=== PATIENT | male | born 1950 | race Caucasian/White ===

== ENCOUNTER 2019-10-31 09:41 | Day surgery (SDC) | payer MEDICARE, SELFPAY ==
--- NOTE | 2019-10-31 | PATH_ITS ---
[facility] Accession Number: [id number] . 01 Material submitted: . PART A: colon - TRANSVERSE COLON POLYP PART B: colon - FLAT LESION PART C: colon - POLYP AT 20CM . 01 Clinical history: . SDC . 02 Diagnosis: A. Transverse Colon, Polyp, Biopsy: Colonic mucosa with no significant diagnostic abnormality, consistent with polypoid redundancy. Negative for dysplasia and malignancy. Additional levels were examined. . B. Flat Lesion, Biopsy: Tubular adenoma. . C. Colon, Polyp At 20 CM, Biopsy: Tubulovillous adenoma. No evidence of malignancy or high-grade dysplasia. . . I 11/04/2019 1245 Local . 02 Electronically signed: . Nisha Lyons MD, Pathologist NPI- [id number] . 01 Gross description: . Part A: TRANSVERSE COLON POLYP: Received in formalin are 3 fragment(s) of burgess, soft tissue measuring 0.1 x 0.1 x 0.1 cm to 0.3 x 0.3 x 0.2 cm submitted entirely in 1 cassette(s) Part B: FLAT LESION: Received in formalin are 3 fragment(s) of burgess, soft tissue measuring 0.2 x 0.2 x 0.2 cm to 0.4 x 0.3 x 0.2 cm submitted entirely in 1 cassette(s) Part C: POLYP AT 20CM: Received in formalin is 1 fragment(s) of burgess, soft tissue measuring 0.7 x 0.5 x 0.5 cm submitted entirely in 1 cassette(s) /FRANSICO 11/01/2019 0139 Local . 02 Microscopic: . A. Additional levels were examined. . 02 Pathologist provided ICD-10: D12.6 . 02 CPT . 508762, 729468, 960585 Performed at: 01 [facility] [address] [place] [address], [place], [place] [id number] MD Aron Gonzalez MD Phone: [phone] Performed at: 02 [facility] [address] [address] [place], [place] [id number] MD Nisha Lyons MD Phone: [phone]
[2019-10-31] MEDS: LACTATED RINGERS 1,000 ML 200 ML IV (10:06)
[2019-10-31 10:16] VITALS: BP 134/83; PULSE 58; RESP 16; TEMP 36.2; O2SAT 100; BMI 22.4
--- NOTE | 2019-10-31 11:42 | PM.HP.1 ---
History of Present Illness History of Present Illness Date Patient Seen: 10/31/19 Time Patient Seen: 11:43 Chief complaint: [facility] [place] Narrative: The patient is a gentleman here because of a positive fit test and blood per rectum. His last colonoscopy was at least 11 years ago. He has had polyps removed in the past. Patient History Medical History (Updated 10/31/19 @ 11:45 by Dat Rosas MD) Recurrent major depressive disorder, in partial remission (10/29/15) Rotator cuff impingement syndrome of left shoulder (03/30/15) Supraventricular tachycardia (10/29/15) Vitreous detachment of left eye (10/29/15) Family & Social History Social History: household members spouse Tobacco & Substance use: Smoking Status Never smoker alcohol intake frequency 0-2 drinks per day Substance Use Type marijuana Meds Home Medications and Allergies Home Medications Medication Instructions Recorded Confirmed Type cholecalciferol (vitamin D3) PRN #0 09/15/11 History [Vitamin D3] clobetasol 1 dudley TOPICAL BIDP PRN #60 gm 04/22/16 Rx Allergies Allergy/AdvReac Type Severity Reaction Status Date / Time No Known Drug Allergies Allergy Verified 10/31/19 09:36 Review of Systems Review of Systems Narrative: Patient had pneumonia in August. He had a very high temperature. His COVID-19 test at that time was negative and it is negative now. Exam Vital Signs (past 8 hours): - 10/31/19 10:16 Temperature 97.1 F L Pulse Rate 58 L Respiratory Rate 16 Blood Pressure 134/83 Pulse Oximetry 100 Oxygen Delivery Method Room Air Narrative Exam Narrative: Pleasant cooperative patient no apparent distress. Lungs are clear to auscultation. No rales or rhonchi. Heart regular rate and rhythm no murmur gallop. Abdomen is soft nontender without mass. No obvious hernias. Patient is alert and oriented x3. Assessment & Plan Assessment and plan (1) Supraventricular tachycardia: Problem details: Will monitor. He has supraventricular tachycardia intermittently. It is not usually sustained. Status: None Assessment & Plan narrative: The patient for a screening colonoscopy. I have discussed the procedure with them. Risks of bleeding, perforation which would necessitate major operation, failure to find remove all lesions, the potential tattoo were all discussed. All questions were answered. They wished to proceed.
--- NOTE | 2019-10-31 11:46 | PM.PREOP ---
Pre-operative Note COVID-19 COVID-19 status: Negative Result date/Date tested (Pos, Neg/Pending): 10/28/19 Interval Note History & Physical reviewed/Exam performed by Physician: Yes Changes to H&P: No ASA Class (for procedural sedation): I
[2019-10-31] MEDS: fentaNYL 250 MCG/5 ML INJ IV (11:48)
[2019-10-31] MEDS: MIDAZOLAM 5 MG/5 ML VIAL IV (11:48)
--- NOTE | 2019-10-31 12:17 | PM.OP.ENDO ---
Operative Date/Time/Diagnoses Date of procedure: 10/31/19 Time of procedure: 12:19 Pre-op diagnosis: history of polyps. Last colonoscopy 11 years ago. Post-op diagnosis: same (Two polyps and 1 irregular area of mucosa.) Procedure & Clinicians Study performed: Colonoscopy with cold biopsy and hot snare polypectomy Same procedure as scheduled: Yes Indications: Screening. History of blood per rectum. Positive fit test. Surgeon: Dat Rosas Procedure Notes SCOAP/Timeout: Performed Procedure in detail: The patient was placed in the left lateral decubitus position and underwent IV sedation directed by the surgeon consisting of fentanyl and Versed. Digital exam was remarkable for an enlarged prostate. I did not note any external hemorrhoids and his sphincter tone was decreased. The scope was inserted and advanced through the rectum into the sigmoid, descending, transverse, and ascending colon. A small polyp was I identified in the transverse colon which was biopsied and removed. I also noted a small reddened area at 50 cm from the anal verge that could represent a very small AV malformation. The cecum was reached identified by the ileocecal valve and the appendiceal opening. There was a flat lesion in the distal transverse colon. I was not sure if it was actually a polyp or just a slight variation in the mucosa. I took multiple pieces of the area. If it is positive for an adenoma this scope will need to be repeated in a year or lasts to remove the remainder of this lesion. The scope was gradually brought out. An additional Polyp was found at 20 cm from the anal verge. This polyp was snared as it was larger than the others. Additionally, there was a very small lesion proximal to this which was cauterized.. The scope ultimately was retroflexed in the rectum. The appearance was remarkable for minor scarring on old hemorrhoidal disease. There was no active or at large hemorrhoids however.. The scope was removed and the patient tolerated the procedure well Scope withdrawal time: 9 minutes(14 total) Sedation minutes: 30 Findings: polyp and other findings (Enlarged prostate) Specimen(s): other (Polyps and possible flat lesion in the transverse colon) Complications: none Post-procedure Recommendations: Colonscopy in 5 years (If the flat lesion is adenomatous he should have this test repeated within the next year to remove the remainder of it.) Follow up: as needed Disposition: PACU
[2019-10-31 12:22] VITALS: BP 115/68; PULSE 56; RESP 12; TEMP 36.5; O2SAT 99
[2019-10-31 12:27] VITALS: BP 107/72; PULSE 59; RESP 14; O2SAT 99
[2019-10-31 12:35] VITALS: BP 120/64; PULSE 50; RESP 13; TEMP 36.1; O2SAT 99
[2019-10-31 12:40] VITALS: BP 117/75; PULSE 53; RESP 15; TEMP 36.2; O2SAT 100
== END 2019-10-31 12:55 | disposition home or self-care (01) ==
PROVIDERS: Family Provider Family Medicine; PCP Family Medicine; Referring Provider Family Medicine; Visit Provider Specialist
PROC: 0DJD8ZZ Inspection of Lower Intestinal Tract, Via Natural or Artificial Opening Endoscopic (ICD-10-PCS; CPT 45378; principal; 2019-10-31 10:45)
DX: R19.5 Other fecal abnormalities (principal); Z86.010 Personal history of colon polyps; I47.1 Supraventricular tachycardia; N40.0 Benign prostatic hyperplasia without lower urinary tract symptoms; D12.6 Benign neoplasm of colon, unspecified
CPT/HCPCS: 45385; 45380; 99152; 99153; J2250; J3010

== ENCOUNTER → 2020-06-22 12:01 | Outpatient (CLI) | payer MEDICARE, SELFPAY ==
--- NOTE | 2020-06-22 | DI.US.S_ITS ---
PROCEDURE: US SCROTUM INDICATIONS: RIGHT TESTICLE DISORDER TECHNIQUE: Real-time scanning was performed of the scrotum and testicles, with image documentation. Color and pulse Doppler interrogation was performed of both testicles. COMPARISON: None. FINDINGS: Right: Testicle is normal in size at 4.2 x 3.2 x 2.3 cm, and homogenous in echotexture. Epididymis is mildly thickened and demonstrates several epididymal cysts, including an 11 mm epididymal head cyst. No hydrocele or varicoceles. Overlying scrotal skin is normal in thickness. Left: Testicle is normal in size at 4.4 x 2.9 x 2 cm, and homogeneous in echotexture. Epididymis is mildly thickened, with a 2 mm cyst incidentally noted.. No hydrocele or varicoceles. Overlying scrotal skin is normal in thickness. Doppler: Color and pulse Doppler demonstrate normal and symmetric arterial flow in both testicles. No findings of groin hernia can be seen. IMPRESSION: No intratesticular mass can be seen. Normal appearing, symmetric vascularity can be seen. On the right, numerous epididymal cysts are seen, including an 11 mm epididymal head cyst. Dictated by: Maximino Goyal M.D. on 06/22/2020 at 16:06 Approved by: Maximino Goyal M.D. on 06/22/2020 at 16:07
[2020-06-22 13:28] LABS: Prostate Specific Antigen 2.56 ng/mL (0.10-4.00)
== END ==
PROVIDERS: Specialist; Family Provider Family Medicine; PCP Family Medicine; Referring Provider Family Medicine; Visit Provider Family Medicine
DX: N50.9 Disorder of male genital organs, unspecified (principal); N50.3 Cyst of epididymis; R97.20 Elevated prostate specific antigen [PSA]
CPT/HCPCS: 36415; 76870; 84153

== ENCOUNTER → 2020-08-21 09:41 | Day surgery (SDC) | payer MEDICARE, SELFPAY ==
[2020-08-21 10:22] VITALS: BP 124/74; PULSE 55; RESP 16; TEMP 36.4; BMI 23.1
[2020-08-21] MEDS: LACTATED RINGERS 1,000 ML 200 ML IV (10:47)
--- NOTE | 2020-08-21 11:30 | PM.HP.1 ---
History of Present Illness History of Present Illness Date Patient Seen: 08/21/20 Time Patient Seen: 11:30 [place] [facility] [place]arrative: Patient is gentleman who had a flat unusual area in his proximal transverse colon the proved to be neoplastic. He is brought back to ensure complete removal. He has also been having bleeding and pain with bowel movements. He has asked me to take a look at that and treated if I can do so at this time. This might involve banding I explained to him. Patient History Medical History Recurrent major depressive disorder, in partial remission (10/29/15) Rotator cuff impingement syndrome of left shoulder (03/30/15) Seizure Supraventricular tachycardia (10/29/15) Vitreous detachment of left eye (10/29/15) Family & Social History Social History: household members spouse Tobacco & Substance use: Smoking Status Former smoker alcohol intake frequency 0-2 drinks per day Substance Use Type marijuana Meds Home Medications and Allergies Allergies Allergy/AdvReac Type Severity Reaction Status Date / Time No Known Drug Allergies Allergy Verified 08/21/20 10:15 Review of Systems Review of Systems ROS: Yes All systems reviewed with the patient and are negative except as otherwise documented Exam Vital Signs (past 8 hours): - 08/21/20 10:22 Temperature 97.5 F L Pulse Rate 55 L Respiratory Rate 16 Blood Pressure 124/74 Oxygen Delivery Method Room Air Narrative Exam Narrative: Pleasant cooperative patient no apparent distress. Lungs are clear to auscultation. No rales or rhonchi. Heart regular rate and rhythm no murmur gallop. Abdomen is soft nontender without mass. No obvious hernias. Patient is alert and oriented x3. Assessment & Plan Assessment & Plan narrative: The patient for a screening colonoscopy. I have discussed the procedure with them. Risks of bleeding, perforation which would necessitate major operation, failure to find remove all lesions, the potential tattoo were all discussed. All questions were answered. They wished to proceed.
--- NOTE | 2020-08-21 11:37 | PM.PREOP ---
Pre-operative Note COVID-19 COVID-19 status: Negative Result date/Date tested (Pos, Neg/Pending): 08/19/20 Interval Note History & Physical reviewed/Exam performed by Physician: Yes Changes to H&P: No ASA Class (for procedural sedation): I
[2020-08-21] MEDS: MIDAZOLAM 5 MG/5 ML VIAL IV (11:39)
[2020-08-21] MEDS: fentaNYL 250 MCG/5 ML INJ IV (11:40)
--- NOTE | 2020-08-21 11:46 | PM.OP.ENDO ---
Operative Date/Time/Diagnoses Date of procedure: 08/21/20 Time of procedure: 11:46 Pre-op diagnosis: Flat lesion in the transverse colon. Small amount of rectal bleeding with bowel movements. Post-op diagnosis: same (Procedure abandoned due to form stool obscuring the lumen.) Procedure & Clinicians Study performed: Attempted colonoscopy. Abandoned at 15 cm from the anal verge Same procedure as scheduled: No Indications: Residual polyp in the transverse colon. Surgeon: Dat Rosas Procedure Notes SCOAP/Timeout: Performed Procedure in detail: Patient is placed left lateral decubitus position underwent IV sedation direct about the surgeon consisting fentanyl Versed. Digital exam was unremarkable. His prostate is not enlarged. I inserted the scope with very quickly encountered form stool. I tried twice to pass around this but was unable to do so. The it completely obstructed the lumen I could not get above it. I retroflexed the scope in the rectum could not see any significant hemorrhoidal disease. Unfortunately as I slowly came to the anus there was stool staining the area and it may get a good look. The procedure will have to be rescheduled and re-evaluated the rectal bleeding at that time. He should have a 2 day prep. Specimen(s): none sent Complications: none Post-procedure Plan for aftercare: Reschedule in near future Disposition: PACU
[2020-08-21 11:49] VITALS: BP 111/65; PULSE 55; RESP 8; TEMP 36.4; O2SAT 96
[2020-08-21 11:55] VITALS: BP 106/62; PULSE 55; RESP 9; O2SAT 96
[2020-08-21 12:00] VITALS: BP 105/65; PULSE 62; RESP 13; TEMP 36.2; O2SAT 97
[2020-08-21 12:06] VITALS: BP 112/74; PULSE 63; RESP 12; TEMP 36.6; O2SAT 97
[2020-08-21 12:29] VITALS: BP 110/70; PULSE 60; RESP 16; TEMP 36.4; O2SAT 98
== END | disposition home or self-care (01) ==
PROVIDERS: Family Provider Family Medicine; PCP Family Medicine; Referring Provider Specialist; Visit Provider Specialist
PROC: 0DJD8ZZ Inspection of Lower Intestinal Tract, Via Natural or Artificial Opening Endoscopic (ICD-10-PCS; CPT 45378; principal; 2020-08-21 10:45)
DX: K62.5 Hemorrhage of anus and rectum (principal); K63.5 Polyp of colon; Z53.09 Procedure and treatment not carried out because of other contraindication
CPT/HCPCS: 45378; J2250; J3010

== ENCOUNTER 2020-10-16 08:45 | Day surgery (SDC) | payer MEDICARE, SELFPAY ==
--- NOTE | 2020-10-16 | PATH_ITS ---
[facility] Accession Number: [id number] . 01 Material submitted: . PART A: colon - 30CM PART B: colon - 110CM PART C: colon - 100CM PART D: colon - 90CM PART E: colon - 10CM . 02 Diagnosis: A. Colon, 30 cm, Biopsy: Colonic mucosa with no diagnostic abnormality. Negative for active, chronic, and microscopic colitis. Negative for dysplasia and malignancy. . B. Colon, 110 cm, Biopsy: Tubular adenoma. . C. Colon, 100 cm, Biopsy: Tubular adenoma. . D. Colon, 90 cm, Biopsy: Tubular adenoma. . E. Colon, 10 cm, Biopsy: Tubulovillous adenoma. No evidence of malignancy or high-grade dysplasia. [facility] 10/20/2020 1349 Local . 02 Electronically signed: . Nisha Lyons MD, Pathologist NPI- [id number] . 01 Gross description: . Part A: 30CM: Received in formalin is 1 fragment(s) of burgess, soft tissue measuring 0.4 x 0.3 x 0.2 cm submitted entirely in 1 cassette(s) Part B: 110CM: Received in formalin are multiple fragment(s) of burgess, soft tissue measuring 1.5 x 0.8 x 0.1 cm in aggregate submitted entirely in 1 cassette(s) Part C: 100CM: Received in formalin are multiple fragment(s) of burgess, soft tissue measuring 2.3 x 1.0 x 0.2 cm in aggregate submitted entirely in 1 cassette(s) Part D: 90CM: Received in formalin is 1 fragment(s) of burgess, soft tissue measuring 0.5 x 0.4 x 0.2 cm submitted entirely in 1 cassette(s) Part E: 10CM: Received in formalin are 2 fragment(s) of burgess, soft tissue measuring 0.3 x 0.3 x 0.2 cm to 0.3 x 0.3 x 0.2 cm submitted entirely in 1 cassette(s) /JAMIE 10/17/2020 0517 Local . 02 Pathologist provided ICD-10: D12.6 . 02 CPT . 332677, 482062, 056765, 285420, 734212 Performed at: 01 [facility] [address] [place] [address], [place], [place] [id number] MD Aron Gonzalez MD Phone: [phone] Performed at: 02 [facility] [address] [place], [place] [id number] MD Nisha Lyons MD Phone: [phone]
[2020-10-16 09:22] VITALS: BP 134/80; PULSE 66; RESP 20; TEMP 36.6; O2SAT 97; BMI 23.1
[2020-10-16 09:32] LABS: COVID19 -Nasal RAPID Negative (Negative)
[2020-10-16] MEDS: LACTATED RINGERS 1,000 ML 200 ML IV (09:36)
--- NOTE | 2020-10-16 10:16 | PM.HP.1 ---
History of Present Illness History of Present Illness Chief complaint: colonscopy Narrative: Patient is a gentleman with a flat adenoma in the transverse colon that he is brought back to have completely removed. He was actually seen a few months ago but the prep was inadequate. He states that things coming out are clear at this time. Patient History Medical History BPH w urinary obs/LUTS Erectile dysfunction Recurrent major depressive disorder, in partial remission (10/29/15) Rotator cuff impingement syndrome of left shoulder (03/30/15) Seizure Spermatocele of epididymis, multiple Supraventricular tachycardia (10/29/15) Vitreous detachment of left eye (10/29/15) Family & Social History Social History: household members spouse Tobacco & Substance use: Smoking Status Former smoker alcohol intake frequency 0-2 drinks per day Substance Use Type marijuana Meds Home Medications and Allergies Home Medications Medication Instructions Recorded Confirmed Type sildenafil 100 mg tablet 100 mg PO DAILY PRN 09/17/20 10/16/20 History Allergies Allergy/AdvReac Type Severity Reaction Status Date / Time No Known Drug Allergies Allergy Verified 10/16/20 09:18 Review of Systems Review of Systems Narrative: No cough or cold. He has had supraventricular tachycardia. No chest pain. No abdominal complaints. Exam Vital Signs (past 8 hours): - 10/16/20 09:22 Temperature 98 F Pulse Rate 66 Respiratory Rate 20 Blood Pressure 134/80 Pulse Oximetry 97 Oxygen Delivery Method Room Air Narrative Exam Narrative: Pleasant cooperative patient no apparent distress. Lungs are clear to auscultation. No rales or rhonchi. Heart regular rate and rhythm no murmur gallop. Abdomen is soft nontender without mass. No obvious hernias. Patient is alert and oriented x3. Objective Labs Labs: Laboratory Results - last 24 hr 10/16/20 09:09 SARS-CoV-2 (PCR) Negative Assessment & Plan Assessment & Plan narrative: The patient for a screening colonoscopy. I have discussed the procedure with them. Risks of bleeding, perforation which would necessitate major operation, failure to find remove all lesions, the potential tattoo were all discussed. All questions were answered. They wished to proceed.
--- NOTE | 2020-10-16 10:23 | PM.PREOP ---
Pre-operative Note COVID-19 COVID-19 status: Negative Result date/Date tested (Pos, Neg/Pending): 10/16/20 Interval Note History & Physical reviewed/Exam performed by Physician: Yes Changes to H&P: No ASA Class (for procedural sedation): I
[2020-10-16] MEDS: fentaNYL 250 MCG/5 ML INJ IV (10:25)
[2020-10-16] MEDS: MIDAZOLAM 5 MG/5 ML VIAL IV (10:25)
--- NOTE | 2020-10-16 10:33 | SUR.OPER ---
Patients glasses taken from ENDO room to PACU with patient in hospital provided glasses bag with patient label.
--- NOTE | 2020-10-16 11:17 | PM.OP.ENDO ---
Operative Date/Time/Diagnoses Date of procedure: 10/16/20 Time of procedure: 11:18 Pre-op diagnosis: History of a flat polyp in the distal transverse colon. Post-op diagnosis: same (With multiple other small polyps) Procedure & Clinicians Study performed: Colonoscopy with cold biopsy and hot snare polypectomy and cauterization of lesion. Injection of Sydni ink. Same procedure as scheduled: Yes Indications: Re-evaluate flat lesion in the distal transverse colon which on biopsy proved to be an adenoma. Repeat scope was recommended to ensure complete removal. Surgeon: Dat Rosas Procedure Notes SCOAP/Timeout: Performed Procedure in detail: The patient was placed in the left lateral decubitus position and underwent IV sedation directed by the surgeon consisting of fentanyl and Versed. Digital exam was remarkable for decreased sphincter tone. There were no palpable masses.. The scope was inserted and advanced through the rectum into the sigmoid, descending, transverse, and ascending colon. At [address] I saw a very small polyp which I removed with cold biopsy forceps.. The cecum was reached identified by the ileocecal valve. The scope was gradually brought out. I identified a small flat lesion at about 110 cm from the anal verge. This was biopsied and removed. At about 100 cm from the anal verge that there was a flat lesion extending about a [address] along a fold. It was narrow. I believe this was the lesion that I had biopsied at the prior colonoscopy. I attempted to snare this but I could not get purchase and therefore I repeatedly biopsied it till it appeared to be completely removed. I then cauterized the edges to ensure complete destruction. Finally I injected Sydni ink just distal to it to tanesha the spot for future evaluation. I continued outward to about 90 cm in snared another small polyp. I reinserted the scope back to the hepatic flexure and re-examined the transverse colon just to make sure that there was no other flat lesion I might have missed. I did not see anything unusual. The scope was then gradually brought out the remainder of the colon. No other lesions were seen in the colon. However in the rectum at 10 cm or was a very small lesion which I biopsied and removed. The scope ultimately was retroflexed in the rectum. The appearance was normal except for the site of the prior biopsy. The scope was removed and the patient tolerated the procedure well. The prep was very good. Scope withdrawal time: 29 minutes total Sedation minutes: 46 Findings: polyp Specimen(s): other (Polyps) Complications: none Post-procedure Recommendations: Other recommendation (Once I receive the results of the pathology report I will make a recommendation regarding when you should have your next colonoscopy. We will contact you by mail.) Follow up: as needed Disposition: PACU
[2020-10-16 11:23] VITALS: BP 121/70; PULSE 63; RESP 14; TEMP 36.4; O2SAT 98
[2020-10-16 11:28] VITALS: BP 106/86; BP 109/66; PULSE 53; PULSE 54; RESP 16; O2SAT 98
[2020-10-16 11:33] VITALS: BP 111/72; PULSE 55; RESP 16; O2SAT 98
[2020-10-16 11:38] VITALS: BP 121/77; PULSE 54; RESP 16; TEMP 36.6; O2SAT 98
[2020-10-16 12:00] VITALS: BP 125/71; PULSE 6; RESP 16; TEMP 36.7; O2SAT 98
--- NOTE | 2020-10-16 12:09 | SUR.PHASEII ---
Pt refused anything po despite several offers by multiple staff. Belly soft and want to go home. Pt left unit in stable condition.
== END 2020-10-16 12:05 | disposition home or self-care (01) ==
PROVIDERS: Family Provider Family Medicine; PCP Family Medicine; Referring Provider Specialist; Visit Provider Specialist
PROC: 0DJD8ZZ Inspection of Lower Intestinal Tract, Via Natural or Artificial Opening Endoscopic (ICD-10-PCS; CPT 45378; principal; 2020-10-16 10:45)
DX: D12.6 Benign neoplasm of colon, unspecified (principal); Z20.822 Contact with and (suspected) exposure to COVID-19
CPT/HCPCS: 45381; 45385; 45380; 87635; 99152; 99153; J2250; J3010

== ENCOUNTER 2021-12-03 14:27 | Emergency (ER) | payer MEDICARE, SELFPAY ==
[2021-12-03] VITALS (8 sets, daily range): BP systolic 119–140; BP diastolic 60–78; PULSE 57–68; RESP 15–31; TEMP 36.8; O2SAT 98–99; BMI 21.7
--- NOTE | 2021-12-03 15:39 | DI.CT.S_ITS ---
PROCEDURE: CT HEAD/BRAIN WO CON INDICATIONS: seizure TECHNIQUE: Noncontrast 4.5 mm thick angled axial sections acquired from the foramen magnum to the vertex, with coronal and sagittal reformats. For radiation dose reduction, the following was used: automated exposure control, adjustment of mA and/or kV according to patient size. COMPARISON: None. FINDINGS: Image quality: Excellent. CSF spaces: Basal cisterns are patent. No extra-axial fluid collections. The ventricles are symmetric in size and shape. Brain: No intracranial bleeds or masses. There is cerebral volume loss for age, with resultant ventricular and sulcal prominence. There are periventricular and deep white matter chronic small vessel ischemic changes. There is intracranial internal carotid artery atherosclerosis. Skull and face: Calvarium and visualized facial bones appear intact, without suspicious lesions. Numerous apparent venous lakes can be seen involving the calvarium. Sinuses: Visualized sinuses and mastoids are clear. IMPRESSION: No acute intracranial hemorrhage is seen. No acute intracranial process is seen. Dictated by: Maximino Goyal M.D. on 12/03/2021 at 15:01 Approved by: Maximino Goyal M.D. on 12/03/2021 at 15:02
--- NOTE | 2021-12-03 15:41 | ED_ITS ---
HPI - Seizure General Chief Complaint: Seizure Stated Complaint: SOB Time Seen by Provider: 12/03/21 15:29 Mode of arrival: EMS Limitations: no limitations History of Present Illness HPI Narrative: Patient brought in by ambulance from home. at bedside. Blood sugar 140, report given by EMS. Patient was in the pantry making a sandwich. He recalls doing this. Next thing he knows his is standing over him calling his name. His states she did hear him fall. When she responded to him he had generalized tonic-clonic seizure. Lasted about 1-5 minutes. Was postictal about 75 minutes. Patient at baseline at this time. 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 This was diagnosed back in 2013. Was not medicated. Neurology was consulted and no medications recommended. Patient has been self medicating with CBD. Patient states last year on average 1 seizure a month. However he has been seizure-free for the last 7 months. No recent illness. No changes in lifestyle or routine. Denies any headache. Denies any injuries from fall/seizure other than small contusion to the finger. Patient had seeds [facility] Neurology Dr. Osorio at the time, in 2013 Related Data Home Medications Medication Instructions Recorded Confirmed sildenafil 100 mg tablet 100 mg PO DAILY PRN Abdominal 09/17/20 10/16/20 Discomfort Previous Rx's Medication Instructions Recorded levetiracetam 500 mg tablet 500 mg PO BID #60 tabs 12/03/21 (Keppra) Allergies Allergy/AdvReac Type Severity Reaction Status Date / Time No Known Drug Allergies Allergy Verified 12/03/21 14:38 Review of Systems Review of Systems Narrative: GENERAL: Denies chills, fatigue, malaise, fever, sweats. HEENT: Denies sinus pain, ear pain, sore throat RESPIRATORY: Denies dyspnea, cough CARDIOVASCULAR: Denies chest pain, palpitations GASTROINTESTINAL: Denies nausea, vomiting, abdominal pain : Denies dysuria, frequency, hematuria MUSCULOSKELETAL: denies muscle or bony pain SKIN: Denies rash, skin lesions NEUROLOGIC: Denies weakness, numbness, positive for seizure ROS Unobtainable: All systems reviewed & are unremarkable except as noted in HPI and below Patient History Medical History BPH w urinary obs/LUTS Erectile dysfunction Recurrent major depressive disorder, in partial remission (10/29/15) Rotator cuff impingement syndrome of left shoulder (03/30/15) Seizure Spermatocele of epididymis, multiple Supraventricular tachycardia (10/29/15) Vitreous detachment of left eye (10/29/15) Social History household members: spouse Smoking Status: Former smoker Smoking Status: Former smoker alcohol intake frequency: 0-2 drinks per day Substance Use Type: marijuana Exam Narrative Exam Narrative: GENERAL: in no distress, not toxic not dyspneic HEAD: Normocephalic. EYES: Pupils equal round No scleral icterus. ENT: Mucous membranes moist. No tongue abrasion NECK: Trachea midline. CARDIOVASCULAR: Regular rate and rhythm without murmurs RESPIRATORY: Clear to auscultation. Breath sounds equal bilaterally. No wheezes, rales, or rhonchi. GASTROINTESTINAL: Abdomen soft, non-tender EXTREMITIES: No gross deformities. Fingers nontender bilateral strong equal systems technologist. BACK: No flank tenderness. NEURO: AOx4. Clear speech no facial droop light touch intact to bilateral face and hands. Strong equal systems technologist. SKIN: Warm and dry PSYCH: Not anxious, is cooperative Initial Vital Signs Initial Vital Signs: Vital Signs Temperature 98.3 F 12/03/21 14:30 Pulse Rate 68 12/03/21 14:30 Respiratory Rate 15 12/03/21 14:30 Blood Pressure 140/78 12/03/21 14:30 Pulse Oximetry 99 12/03/21 14:30 Oxygen Delivery Method 12/03/21 14:30 Course Course Course Narrative: No new issues during course of stay. No seizures during course of stay. Orders Ordered: Discontinued Medications Levetiracetam (Levetiracetam 250 Mg Tablet) 500 mg PO NOW ONE Stop: 12/03/21 17:26 Last Admin: 12/03/21 17:33 Dose: 500 mg Documented By: YUKI Reevaluation(s) Reevaluation #1: Reviewed results with patient and family. Reviewed my conversation and recommendation by Neurology with [facility], Dr. Boyle, they do agree with Blanquita. Patient does understand no operating machinery until cleared by neurology services. Return precautions reviewed with them. They desire discharge home. Time: 17:41 Consultations Consultation #1: Spoke with [facility] Neurology Dr. Boyle, recommends patient to be started on Keppra 500 mg twice a day. Primary care provider to refer to Neurology Services next week for re-evaluation. Time: 17:25 Vital Signs Vital signs: Vital Signs - 8 hr 12/03/21 14:30 12/03/21 14:37 12/03/21 15:00 Temperature 98.3 F Pulse Rate 68 67 Respiratory Rate 15 20 Blood Pressure 140/78 136/60 Pulse Oximetry 99 99 Oxygen Delivery Method Room Air 12/03/21 15:00 12/03/21 15:30 12/03/21 15:30 Temperature Pulse Rate 64 57 L Respiratory Rate 20 20 Blood Pressure 119/64 Pulse Oximetry 99 99 Oxygen Delivery Method MDM - Seizure Differential Diagnosis Differential diagnosis: Likely generalized seizure, new onset seizure and epileptic seizure Lab Data Result diagrams: 12/03/21 14:15 12/03/21 14:15 Labs: Lab Results 12/03/21 12/03/21 Range/Units 14:15 14:15 WBC 14.5 H (4.5-11.0) X10^3/uL RBC 4.31 L (4.5-5.9) X10^6/uL Hgb 13.4 L (13.5-17.5) g/dL Hct 40.4 L (41-53) % MCV 93.9 (80-100) fL MCH 31.0 (26-34) PG MCHC 33.0 (30-36) % RDW 13.2 (11.6-14.8) % Plt Count 399 (150-400) X10^3/uL Neut % (Auto) 91.4 H (50-75) % Lymph % (Auto) 4.3 L (25-40) % [place] % (Auto) 4.2 (3-14) % Eos % (Auto) 0.0 L (2-4) % Baso % (Auto) 0.1 (0-2) % Neut # (Auto) 72138 H (3505-1367) /uL Lymph # (Auto) 600 L (3571-6956) /uL [place] # (Auto) 600 (0-900) /uL Eos # (Auto) 0 (0-450) /uL Baso # (Auto) 0 (0-100) /uL Sodium 135 L (137-145) mmol/L Potassium 4.2 (3.4-5.1) mmol/L Chloride 101 (98-107) mmol/L Carbon Dioxide 24 (22-32) mmol/L BUN 24 H (9-20) mg/dL Creatinine 0.80 (0.66-1.25) mg/dL Estimated GFR > 60 (>60) mL/min BUN/Creatinine Ratio 30.0 H (6-22) Glucose 124 H (80-110) mg/dL Calcium 9.2 (8.4-10.2) mg/dL Total Bilirubin 0.7 (0.2-1.3) mg/dL AST 52 (17-59) IU/L ALT 23 (<50) IU/L Alkaline Phosphatase 66 (38-126) U/L Total Protein 7.6 (6.3-8.2) g/dL Albumin 4.3 (3.5-5.0) g/dL Globulin 3.3 (1.7-4.1) g/dL Albumin/Globulin Ratio 1.3 (1.0-2.8) Imaging Data CT scan - head: Radiologist's Impression: [place] [address] CT Scan Report Signed Patient: Aron Dahl MR#: [id number] : 1950 Acct:[id number] Age/Sex: 71 / M Date of Service: 12/03/21 Loc: ED Accession Number: [id number] ?? Procedure: CT head/brain wo con Ordering Provider: Nitesh Mcgill MD PROCEDURE:? CT HEAD/BRAIN WO CON ? INDICATIONS:? seizure ? TECHNIQUE:? Noncontrast 4.5 mm thick angled axial sections acquired from the foramen magnum to the vertex, with coronal and sagittal reformats.? For radiation dose reduction, the following was used:? automated exposure control, adjustment of mA and/or kV according to patient size.? ? COMPARISON:? None. ? FINDINGS:? Image quality:? Excellent.? ? CSF spaces:? Basal cisterns are patent.? No extra-axial fluid collections.? The ventricles are symmetric in size and shape.? ? Brain:? No intracranial bleeds or masses.? There is cerebral volume loss for age, with resultant ventricular and sulcal prominence.? There are periventricular and deep white matter chronic small vessel ischemic changes.? There is intracranial internal carotid artery atherosclerosis.? ? Skull and face:? Calvarium and visualized facial bones appear intact, without suspicious lesions.? Numerous apparent venous lakes can be seen involving the calvarium. ? Sinuses:? Visualized sinuses and mastoids are clear.? ? ? IMPRESSION:? No acute intracranial hemorrhage is seen.? ? No acute intracranial process is seen.? ? ? Dictated by: Maximino Goyal M.D. on 12/03/2021 at 15:01 ? ? Approved by: Maximino Goyal M.D. on 12/03/2021 at 15:02 ? ECG Data Interpretation: Normal sinus rhythm rate [address] elevation or depression MDM Narrative Medical decision making narrative: Appropriate for discharge home. Exam and imaging and blood work reassuring. White cell count likely related to seizure event. I did review with neurologist and appropriate for follow-up in the office with primary care referral. Medications reviewed. Family and patient agree with treatment plan and desires discharge home and follow up with Neurology. Return precautions reviewed with them. Discharge Plan Departure Patient Disposition: Home Clinical Impression: Generalized seizure Activity Restrictions/Additional Instructions: No driving or operating machinery until evaluated by neurology services. See your family doctor next week to get referral to Neurology Services at [facility]. Return if worse if any questions or concerns. Neurologist name is on discharge paperwork. Please do decreased your CBD use. 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 Prescriptions: New levetiracetam [Keppra] 500 mg tablet 500 mg PO BID Qty: 60 0RF No Action sildenafil 100 mg tablet 100 mg PO DAILY PRN (Reason: Abdominal Discomfort) Rx Instructions: administer 30 minutes to 4 hours before activity Referrals: Gregory Boyle MD [Non-Staff] - Nitesh Anguiano MD [Primary Care Provider] - Visit Report Forms: Patient Portal/API
[2021-12-03 15:51] LABS: Add Manual Diff / Slide Review NO; Basophils Absolute Auto 0 /uL (0-100); Basophils Percent Auto 0.1 % (0-2); Eosinophils Absolute Auto 0 /uL (0-450); Hematocrit 40.4 % (41-53); Hemoglobin 13.4 g/dL (13.5-17.5); Lymphocytes Absolute Auto 600 /uL (1100-4500); Lymphocytes Percent Auto 4.3 % (25-40); Mean Corpuscular Volume 93.9 fL (80-100); Monocytes Absolute Auto 600 /uL (0-900); Monocytes Percent Auto 4.2 % (3-14); Neutrophils Absolute Auto 13300 /uL (1500-7000); Neutrophils Percent Auto 91.4 % (50-75); Platelet Count 399 X10^3/uL (150-400); Red Blood Cell Count 4.31 X10^6/uL (4.5-5.9); Red Cell Distribution Width 13.2 % (11.6-14.8); White Blood Cell Count 14.5 X10^3/uL (4.5-11.0)
[2021-12-03 15:58] LABS: Alanine Aminotransferase 23 IU/L (<50); Albumin 4.3 g/dL (3.5-5.0); Albumin Globulin Ratio 1.3 (1.0-2.8); Alkaline Phosphatase 66 U/L (38-126); Aspartate Aminotransferase 52 IU/L (17-59); Bilirubin Total 0.7 mg/dL (0.2-1.3); Blood Urea Nitrogen 24 mg/dL (9-20); Calcium 9.2 mg/dL (8.4-10.2); Carbon Dioxide 24 mmol/L (22-32); Chloride 101 mmol/L (98-107); Estimated Glomerular Filt Rate > 60 mL/min (>60); Globulin 3.3 g/dL (1.7-4.1); Glucose 124 mg/dL (80-110); HEMOLYSIS 44 (0-50); Potassium 4.2 mmol/L (3.4-5.1); Sodium 135 mmol/L (137-145); Total Protein 7.6 g/dL (6.3-8.2)
[2021-12-03] MEDS: levETIRAcetam 250 MG TABLET 500 MG PO (17:33)
== END 2021-12-03 17:53 | disposition home or self-care (01) ==
PROVIDERS: Emergency Provider Emergency Medicine; Family Provider Family Medicine; PCP Family Medicine
DX: G40.89 Other seizures (principal); R07.9 Chest pain, unspecified
CPT/HCPCS: 36415; 70450; 80053; 85025; 93005; 99284